=== PATIENT | male | born 1980 | race Caucasian/White ===

== ENCOUNTER 2023-12-29 07:17 | Day surgery (SDC) | payer BC ==
[2023-12-29] MEDS ORDERED: Oxymetazoline HCl 0.05% (30 ML BOT) ONE ×2 (08:23→08:52)
[2023-12-29] MEDS ORDERED: Lidocaine 1% PF 5 ML VIAL ONE (08:48)
[2023-12-29] MEDS ORDERED: SUGAMMADEX SODIUM 200 MG/2 ML VIAL ONE (08:48)
[2023-12-29] MEDS ORDERED: PROPOFOL 40 ML ONE (08:48)
[2023-12-29] MEDS ORDERED: Ondansetron PF 4 MG/2 ML Vial ONE (08:48)
[2023-12-29] MEDS ORDERED: fentaNYL PF 100 MCG/2 ML SYRINGE ONE ×2 (08:48→11:17)
[2023-12-29] MEDS ORDERED: Dexamethasone 4 mg/ml Vial ONE (08:48)
[2023-12-29] MEDS ORDERED: Rocuronium Bromide 10 MG/ML (10ML VIAL) ONE (08:48)
[2023-12-29] MEDS ORDERED: EPINEPHrine 1 MG/ML VIAL ONE (08:51)
[2023-12-29] MEDS ORDERED: Lidocaine 1% (PF) 30 ML VIAL ONE (08:52)
[2023-12-29] MEDS ORDERED: methylPREDNISolone Acetate 40 mg/ml Vial ONE (09:53)
[2023-12-29] MEDS ORDERED: Dexmedetomidine 200 MCG/2 ML VIAL ONE (09:54)
[2023-12-29] MEDS ORDERED: Triamcinolone 40 MG/ML VIAL ONE (10:27)
[2023-12-29] MEDS ORDERED: GLYCOPYRROLATE/PF 0.2 MG/ML VIAL ONE ×2 (11:52→11:54)
[2023-12-29] MEDS ORDERED: ePHEDrine Sulfate 50 MG/10 ML VIAL ONE (11:55)
[2023-12-29] MEDS ORDERED: fentaNYL 50 mcg/mL 1 mL Vial ONE (13:42)
[2023-12-29] MEDS ORDERED: HYDROcodone/Acetaminophen 5/325 mg Tablet ONE (15:03)
== END 2023-12-29 15:35 | disposition home or self-care (01) ==
LOC: SDC 07:17
PROVIDERS: ATTEND Specialist
DX: J34.2 Deviated nasal septum (principal); J34.3 Hypertrophy of nasal turbinates; J32.0 Chronic maxillary sinusitis; J32.1 Chronic frontal sinusitis; J32.3 Chronic sphenoidal sinusitis; J32.4 Chronic pansinusitis; Z88.0 Allergy status to penicillin; Z79.899 Other long term (current) drug therapy
CPT/HCPCS: 36416; 93005; 93010; J0171; J1030; J1100; J2405; J2704; J3010; J3301; J3490